=== PATIENT | female | born 1990 | race Caucasian/White ===

== ENCOUNTER 2019-11-22 16:19 | Emergency (ER) | payer MEDICARE, MEDICAID, SELFPAY ==
--- NOTE | 2019-11-22 16:26 | ED.EYEPROB ---
HPI - Eye Problem General Chief complaint: Eye Problems Stated complaint: [place] eye Time Seen by Provider: 11/22/19 16:32 Source: patient and RN notes reviewed Mode of arrival: ambulatory Limitations: no limitations History of Present Illness HPI Narrative: 29-year-old female presents with concern for eye irritation, eye redness. Reports symptoms started today. Reports last night before she went to bed she had mild eye irritation. Denies new vision changes. chief complaint: eye redness Related Data Home Medications Medication Instructions Recorded Confirmed mirtazapine 30 mg PO HS 11/22/19 11/22/19 topiramate 50 mg PO DAILY 11/22/19 11/22/19 Allergies Allergy/AdvReac Type Severity Reaction Status Date / Time No Known Allergies Allergy Verified 11/22/19 16:41 Review of Systems Review of Systems: Narrative: CONSTITUTIONAL: Denies malaise, chills, sweats, or fever. EYES: Denies visual changes. Reports left eye redness,, irritation, discharge. ENT: Denies rhinorrhea, congestion, sinus pain, otalgia or sore throat. SKIN: Denies rash or itching. MUSCULOSKELETAL: Denies myalgia. NEUROLOGIC: Denies headache. All systems reviewed & are unremarkable except as noted in HPI and below PMFSH Comments At time of signature, agree with nursing past medical, surgical, social and family history. There is no relevant family history pertinent to the presenting complaint Exam Narrative: Exam Narrative: GENERAL: Well-appearing, well-nourished, and in no acute distress. HEAD: Normocephalic, atraumatic. EYES: PERRLA and EOMI. left eye conjunctive and sclera injected, cloudy drainage noted. Right eye conjunctive a sclera clear ENT: Nares clear, turbinates pink, no rhinorrhea or epistaxis. Mucous membranes moist. TM pearly chavez with sharp light reflex bilaterally; no tragal tenderness. Oropharynx without erythema or lesions. Tonsils not enlarged and without exudate. NECK: Supple. CHEST: No respiratory distress. Speaks in full sentences. HEART: Regular rate and rhythm. SKIN: Warm, dry, no rash. NEURO: Alert and oriented x3. PSYCH: Normal mood and affect Course Course Emergency Course: Patient is aware of diagnosis, understands and agrees to treatment plan. Anticipatory guidance given. Patient agrees to follow-up as directed and is aware of reasons to seek care at the emergency department. Portions of this record may have been created with voice recognition software Vital Signs Vital signs: Vital Signs Temperature 98.2 F 11/22/19 16:30 Pulse Rate 95 11/22/19 16:30 Respiratory Rate 20 11/22/19 16:30 Blood Pressure 128/73 11/22/19 16:30 Pulse Oximetry 98 11/22/19 16:30 Temperature 98.2 F 11/22/19 16:30 Pulse Rate 95 11/22/19 16:30 Respiratory Rate 20 11/22/19 16:30 Blood Pressure 128/73 11/22/19 16:30 Pulse Oximetry 98 11/22/19 16:30 Reviewed. MDM - Eye Problem MDM Narrative Medical decision making narrative: Consideration of the following conditions may be warranted for the presenting problem, they are not final diagnoses: Bacterial conjunctivitis, allergic conjunctivitis, viral conjunctivitis, foreign body, blepharitis, chalazion, hordeolum, corneal abrasion. Exam findings show no acute concerns or changes; patient is non-toxic appearing and is in no distress. Patient is appropriate for outpatient treatment and follow-up. Critical Care Time Critical Care Time Critical Care Time: No Discharge Plan Discharge Clinical Impression: Bacterial conjunctivitis Patient Disposition: Home, Self-Care Condition: Stable Instructions: Conjunctivitis (ED) Additional Instructions: Do not touch or rub your eye. Use a warm or cool washcloth on your eye for comfort Use eyedrops as directed Practice good handwashing and hygiene to prevent spread of infection You may take Tylenol or ibuprofen for pain Follow-up with PCP or jewelry sorter if condition is not improving in 2-3days. G
[2019-11-22 16:30] VITALS: BP 128/73; PULSE 95; RESP 20; TEMP 36.8; O2SAT 98
== END 2019-11-22 16:45 | disposition home or self-care (01) ==
PROVIDERS: Emergency Provider Nurse Practitioner
DX: H10.9 Unspecified conjunctivitis (principal); G25.81 Restless legs syndrome; F41.9 Anxiety disorder, unspecified; F31.9 Bipolar disorder, unspecified
CPT/HCPCS: 99213; G0463

== ENCOUNTER 2021-04-23 15:12 | Emergency (ER) | payer OTHER, SELFPAY ==
[2021-04-23 15:17] VITALS: BP 123/83; PULSE 118; RESP 20; TEMP 36.2; O2SAT 99
--- NOTE | 2021-04-23 15:20 | ED.SKABFB ---
HPI - Skin/Abscess/Foreign Bdy General Chief complaint: Skin/Abscess/Foreign Body Stated complaint: poss shingles Time Seen by Provider: 04/23/21 15:20 Source: patient, RN notes reviewed and old records reviewed Mode of arrival: ambulatory Limitations: no limitations History of Present Illness HPI narrative: 30-year-old female presents to the [facility] with a painful rash to left side of abdomen, back and 3 hepatic lesions noted. Worsening over the last 24 hours No treatment prior to arrival. MD complaint: rash Related Data Home Medications Medication Instructions Recorded Confirmed escitalopram oxalate 20 mg PO DAILY 11/22/19 11/22/19 gabapentin 800 mg PO HS 11/22/19 11/22/19 hydroxyzine HCl 100 mg PO QID PRN 11/22/19 11/22/19 lamotrigine 100 mg PO DAILY 11/22/19 11/22/19 mirtazapine 30 mg PO HS 11/22/19 11/22/19 topiramate 50 mg PO DAILY 11/22/19 11/22/19 Allergies Allergy/AdvReac Type Severity Reaction Status Date / Time No Known Allergies Allergy Verified 11/22/19 16:41 Review of Systems Review of Systems: All systems reviewed & are unremarkable except as noted in HPI and below Constitutional: Constitutional: Reports no additional constitutional complaints, Denies chills and Denies fever(s) Eyes: Eyes: Reports no additional eye complaints ENT: Reports system reviewed and no additional complaints, except as documented Cardiovascular: Cardiovascular: Reports no additional cardiovascular complaints Respiratory: Respiratory: Reports no additional respiratory complaints Gastrointestinal: Gastrointestinal: Reports no additional gastrointestinal complaints Musculoskeletal: Musculoskeletal: Reports no additional musculoskeletal complaints Integumentary/Breasts: Skin/Breast: Reports as per HPI and Reports rash Neurologic: Reports system reviewed and no additional complaints, except as documented Psychiatric: Psychiatric: Reports no additional psychiatric complaints Allergic/Immunologic: Allergic/Immunologic: Reports no additional allergic/immunologic complaints [facility] Past Medical History Medical History (Updated 04/23/21 @ 16:46 by Cielo Hernandez) Anxiety and depression Surgical History Surgical History (Updated 04/23/21 @ 16:46 by Cielo Hernandez) No significant past surgical history Social History Social History (Updated 04/23/21 @ 16:46 by Cielo Hernandez) Living arrangements: with family Gender identity (if verbalized by the patient): Female Comments At the time of my signature, I reviewed and agree with the nursing past medical, surgical, social, and family history. There is no relevant family history pertinent to the patient complaint. Exam Const: General: healthy appearing, no acute distress and alert Nutritional Appearance: well nourished and obese morbidly obese Orientation/consciousness: patient oriented x3 : General: Yes no CVA tenderness Skin: Rashes: rashes noted vesicles left Full body images: 1. Hepatic lesion, no signs of infection, small blistery areas. 2. Hepatic lesion 3. Hepatic lesion Neuro: General: patient oriented x3, moves all extremities and no meningeal signs Cranial nerves: Yes Nystagmus not present Speech: normal speech Gait exam (Neuro): Normal gait present Extrem: General: normal to inspection and no pedal edema Psych: Appearance: grossly normal and well kempt Mental Status: mental status grossly normal Affect: normal affect Attitude: cooperative Thought content: Yes Normal thought content present Course Course Emergency Course: Discharge instructions reviewed with patient, as well as provided in writing per nursing staff. The instructions also include specific and strict return/GO TO THE ER as well as f/u information. All questions have been answered, and the patient deny any further questions with discharge and discharge plan. Vital Signs Vital signs: Vital Signs Temperature 97.2 F L 04/23/21 15:17 Pulse Rate 118 H 12
== END 2021-04-23 16:05 | disposition home or self-care (01) ==
PROVIDERS: Emergency Provider Nurse Practitioner
DX: B02.9 Zoster without complications (principal); F41.9 Anxiety disorder, unspecified; F32.A Depression, unspecified
CPT/HCPCS: 99213; G0463

== ENCOUNTER 2023-01-09 14:03 | Emergency (ER) | payer MEDICARE, MEDICAID, SELFPAY ==
[2023-01-09 14:20] VITALS: BP 135/79; PULSE 129; RESP 20; TEMP 36.2; O2SAT 100
--- NOTE | 2023-01-09 14:41 | ED.URI ---
HPI - URI/Sore Throat General Chief Complaint: Upper Respiratory Infection Stated Complaint: Cough Time Seen by Provider: 01/09/23 14:42 Source: patient Mode of arrival: ambulatory Limitations: no limitations History of Present Illness HPI Narrative: 32-year-old female who presents to [facility] with complaints of 3-4 days of sore throat and congested cough,stuffy nose.Patient reports that she has not had a fever.She reports that she has has had vaccinations for COVID but no booster, is concerned for possible COVID and would like to be tested. Patient denies any shortness of breath with SAO2 100% on room air. Tylenol taken for discomfort. MD elicited complaint: cough and sore throat Onset (ago): day(s) (3-4) Able to tolerate fluids by mouth: Yes Treatments prior to arrival: acetaminophen Related Data Home Medications Medication Instructions Recorded Confirmed escitalopram oxalate 20 mg tablet 20 mg PO DAILY 11/22/19 01/09/23 gabapentin 800 mg tablet 800 mg PO HS 11/22/19 01/09/23 hydroxyzine HCl 50 mg tablet 100 mg PO QID PRN Anxiety 11/22/19 01/09/23 lamotrigine 100 mg tablet 100 mg PO DAILY 11/22/19 01/09/23 mirtazapine 30 mg tablet 30 mg PO HS 11/22/19 01/09/23 topiramate 50 mg tablet 50 mg PO DAILY 11/22/19 01/09/23 olanzapine 5 mg tablet 5 mg PO DAILY 01/09/23 01/09/23 Allergies Allergy/AdvReac Type Severity Reaction Status Date / Time No Known Allergies Allergy Verified 01/09/23 14:07 Review of Systems Review of Systems: CONSTITUTIONAL: Denies malaise, chills, sweats, or fever. EYES: Denies visual changes, redness, or discharge. ENT: Reports rhinorrhea, congestion, sinus pain, no otalgia and sore throat. CARDIOVASCULAR: Denies chest pain, palpitations, or edema. RESPIRATORY: Reports cough.? Denies dyspnea. GASTROINTESTINAL: Denies abdominal pain, nausea, vomiting, diarrhea SKIN: Denies rash or itching. MUSCULOSKELETAL: Denies myalgia. NEUROLOGIC: Denies headache. All systems reviewed & are unremarkable except as noted in HPI and below PMFSH Past Medical History Medical History (Updated 01/11/23 @ 20:16 by Iraida Kapoor NP) Anxiety and depression Migraine Restless leg syndrome Surgical History Surgical History (Updated 04/23/21 @ 16:46 by Cielo Hernandez APRN) No significant past surgical history Social History Social History (Updated 04/23/21 @ 16:46 by Cielo Hernandez APRN) Living arrangements: with family Gender identity (if verbalized by the patient): Female Comments At time of signature, agree with nursing past medical, surgical, social and family history. There is no relevant family history pertinent to the presenting complaint Exam Narrative: GENERAL: Well-appearing, well-nourished, and in no acute distress. HEAD: Normocephalic EYES: PERRLA, conjunctivae clear ENT: Nares clear, turbinates edematous and erythematous, clear discharge. Mucous membranes moist. TM pearly chavez with dull light reflex bilaterally; no tragal tenderness. Oropharynx erythematous without lesions. Tonsils not enlarged and without exudate, no drooling, no hoarseness, no trismus, uvula midline.post nasal drainage. NECK: Supple. No lymphadenopathy CHEST: Clear to auscultation, breath sounds equal. No wheezing, rhonchi, rales, or stridor. No respiratory distress, speaks in full sentences.SAO2 100% on room air HEART: Regular rate and rhythm. No murmur heard. SKIN: Warm, dry, no rash. NEURO: Alert and oriented x3. PSYCH: Normal mood and affect Course Course Emergency Course: Patient is aware of diagnosis, understands and agrees to treatment plan.? Anticipatory guidance given.? Patient agrees to follow-up as directed and is aware of reasons to seek care at the emergency department. Portions of this record may have been created with voice recognition software Level of Care: Express Care Visit Vital Signs Vital signs: Vital Signs Temperature 36.2 C L 09/
== END 2023-01-09 15:00 | disposition home or self-care (01) ==
PROVIDERS: Emergency Provider Registered Nurse
DX: U07.1 COVID-19 (principal); F41.9 Anxiety disorder, unspecified; G25.81 Restless legs syndrome
CPT/HCPCS: 87426; 99213; C9803; G0463

== ENCOUNTER 2023-01-28 19:59 | Inpatient (IN) | payer MEDICARE, MEDICAID, SELFPAY ==
--- NOTE | ~2023-01-28 | XR_ITS ---
XR chest 1V DATE: 01/28/2023 20:34 INDICATION: Ingestion TECHNIQUE: Supine AP chest COMPARISON: None FINDINGS: The cardiac and mediastinal sweats appear unremarkable for AP projection. No pulmonary cons olidation, pleural effusion or pneumothorax is evident. Included skeletal structures are unremarkable. IMPRESSION: No active disease is evident Reviewed, dictated and finalized at location A.
--- NOTE | ~2023-01-28 | CT_ITS ---
EXAMINATION: CT brain wo con DATE: 01/28/2023 20:30 INDICATION: Altered mental state. Overdose. TECHNIQUE: Computed tomography (CT) of the head was performed without intravenous contrast. The mA wa s adjusted according to patient size. Iterative reconstruction technique was employed. Exam dose: 12 10.67 mGy-cm total exam DLP. COMPARISON: None FINDINGS: No intracranial mass lesion or hemorrhage or cerebrovascular accident, midline shift or mas s effect effect is detected. Normal ventricular size. No subdural or epidural hematoma. No fracture or bone destruction of the cranial vault. There is mucoperiosteal thickening at the frontoethmoid areas and patchy soft tissue opacification of ethmoid air cells bilaterally. Minimal mucoperiosteal thickening of the lower maxillary sinuses. The mastoid air cells are normally developed and aerated. IMPRESSION: No acute intracranial finding Reviewed, dictated and finalized at Location [facility]. Reviewed, dictated and finalized at location A.
[2023-01-28 20:00] VITALS: BP 91/59; PULSE 83; RESP 15; TEMP 36.7; O2SAT 100
--- NOTE | 2023-01-28 20:07 | ECG_ITS ---
Measurements Intervals [place] Rate: 77 P: 12 DC: 162 QRS: 5 QRSD: 98 T: 35 QT: 385 QTc: 438 Interpretive Statements SINUS RHYTHM LOW QRS VOLTAGE IN PRECORDIAL LEADS BASELINE WANDER- I, III, AVL BORDERLINE ECG NO PREVIOUS ECG AVAILABLE FOR COMPARISON Electronically Signed On 01-28-2023 20:26:20 CDT by Nathaniel Kaminski D.O.
--- NOTE | 2023-01-28 20:10 | ED.OVERDOSE ---
HPI - Overdose General Chief Complaint: Overdose Stated Complaint: od Time Seen by Provider: 01/28/23 20:04 History of Present Illness HPI Narrative: Patient is a 32-year-old female with unknown medical history here after intentional overdose on unknown medications. History is obtained by EMS. EMS notes that patient was riding [employer] was someone all day today. They did stop at a pharmacy earlier on today and picked up prescription medications. They note that she took several handfuls of medications, unknown which these medications were and she became more lethargic and was brought in by ambulance. Patient does note she took amitriptyline, unknown how many. She declines attempt to kill herself. Very poor historian. complaint: intentional overdose Intent: unwilling to say Related Data Home Medications Medication Instructions Recorded Confirmed escitalopram oxalate 20 mg tablet 20 mg PO DAILY 11/22/19 01/09/23 gabapentin 800 mg tablet 800 mg PO HS 11/22/19 01/09/23 hydroxyzine HCl 50 mg tablet 100 mg PO QID PRN Anxiety 11/22/19 01/09/23 lamotrigine 100 mg tablet 100 mg PO DAILY 11/22/19 01/09/23 mirtazapine 30 mg tablet 30 mg PO HS 11/22/19 01/09/23 topiramate 50 mg tablet 50 mg PO DAILY 11/22/19 01/09/23 olanzapine 5 mg tablet 5 mg PO DAILY 01/09/23 01/09/23 Allergies Allergy/AdvReac Type Severity Reaction Status Date / Time No Known Allergies Allergy Verified 01/28/23 20:43 Review of Systems Review of Systems: ROS unobtainable: Yes unobtainable due to mental status PMFSH Past Medical History Medical History (Updated 01/28/23 @ 22:19 by Nichole Herrera MD) Anxiety and depression Migraine Restless leg syndrome Surgical History Surgical History (Updated 04/23/21 @ 16:46 by Cielo Hernandez APRN) No significant past surgical history Social History Social History (Updated 04/23/21 @ 16:46 by Cielo Hernandez APRN) Living arrangements: with family Gender identity (if verbalized by the patient): Female Exam Narrative: GENERAL: Ill appearing HEAD: Normocephalic, atraumatic. EYES: PERRLA and EOMI. Pupils 3mm. ENT: Nares clear. Mucous membranes moist. NECK: Supple. CHEST: Clear to auscultation. No respiratory distress. HEART: Regular rate and rhythm. Normal peripheral pulses. ABDOMEN: Soft, nontender, nondistended. EXTREMITIES: Normal range of motion. No edema. SKIN: Warm, dry, no rash. NEURO: No focal deficits. Oriented x1. Drowsy but will wake and answer some questions. PSYCH: angry affect Course Course Emergency Course: Patient seen evaluated on EMS arrival. Patient reportedly took several handfuls of medications prior to arrival. Unknown what medications she took other than amitriptyline. On chart review patient has prior prescriptions for acyclovir, escitalopram, gabapentin, hydroxyzine, lamotrigine, mirtazapine, olanzapine. Only prior visits in our system are ED visits for conjunctivitis, shingles and COVID. Lab work reviewed. CBC within normal limits. Magnesium 1.3, will replete. Salicylates and acetaminophen negative. ETOH negative. Patient not redirectable. Will give 2mg of ativan. Spoke with Dr. Hardy, accepts to ICU. Consult placed. He requested Bicarg gtt and additional IVF. Both have been ordered. Spoke with Dr. Mancini, accepts patient for admission. Vital Signs Vital signs: Vital Signs Temperature 98.1 F 01/28/23 20:00 Pulse Rate 83 01/28/23 20:00 Respiratory Rate 15 01/28/23 20:00 Blood Pressure 91/59 L 01/28/23 20:00 Pulse Oximetry 100 01/28/23 20:00 Oxygen Delivery Room Air 01/28/23 20:00 Temperature 98.1 F 01/28/23 20:00 Pulse Rate 82 01/28/23 20:42 Respiratory Rate 20 01/28/23 20:57 Blood Pressure 109/64 01/28/23 20:42 Pulse Oximetry 99 01/28/23 20:42 Oxygen Delivery Room Air 01/28/23 20:00 MDM - Overdose Lab Data 01/28/23 20:15 01/28/23 20:15 Labs: Lab Results
[2023-01-28 20:21] VITALS: PULSE 81
[2023-01-28 20:26] LABS: Basophils Absolute Auto 0.1 K/mm3 (0.0-0.1); Basophils Percent Auto 0.6 % (0.2-1.2); Eosinophils Absolute Auto 0.3 K/mm3 (0-0.3); Eosinophils Percent Auto 3.2 % (0-4.4); Hematocrit 38.3 % (37.0-47.0); Hemoglobin 12.1 g/dL (12.0-15.0); Immature Granulocyte Absolute 0.04 K/mm3 (0.00-0.031); Immature Granulocyte Percent A 0.4 % (0-0.5); Lymphocytes Absolute Auto 3.24 K/mm3 (0.9-3.2); Lymphocytes Percent Auto 33.1 % (18.3-44.2); Mean Corpuscular HGB Conc 31.6 g/dl (32-36); Mean Corpuscular Hemoglobin 27.8 pg (26-34); Mean Platelet Volume 10.1 fl (7.4-10.4); Monocytes Absolute Auto 0.6 K/mm3 (0.1-0.6); Monocytes Percent Auto 5.7 % (2.6-8.5); Neutrophils Absolute Auto 5.6 K/mm3 (1.3-6.7); Platelet Count Result 289 k/mm3 (150-375); Red Blood Count 4.35 M/mm3 (4.2-5.4); Red Cell Distribution Width 13.2 % (11.5-14.5); White Blood Count 9.8 K/mm3 (4.5-10.0)
[2023-01-28 20:36] LABS: Acetaminophen < 10 ug/mL (10-30); Alanine Aminotransferase 28 U/L (6-35); Albumin Level 2.6 g/dL (3.5-5.1); Alkaline Phosphatase 45 U/L (38-126); Anion Gap 4 mmol/L (8-16); Aspartate Amino Transferase 18 U/L (14-36); Bilirubin,Total 0.3 mg/dL (0.2-1.3); Blood Urea Nitrogen 7 mg/dL (7-17); Calcium 6.6 mg/dL (8.4-10.2); Carbon Dioxide 22 mmol/L (22-30); Chloride 111 mmol/L (98-107); Estimated CRCL calculation 122 ml/min; Estimated Glomerular Filt Rate > 60; Ethanol < 10 mg/dL (<10); Glucose 105 mg/dL (65-110); Magnesium 1.3 mg/dL (1.6-2.3); Partial Thromboplastin Time 24.9 SECONDS (22.3-36.8); Potassium 3.6 mmol/L (3.4-5.0); Salicylate < 1.0 mg/dL (2-20); Sodium 137 mmol/L (137-145)
[2023-01-28 20:40] LABS: Lactic Acid Reflex 1.7 mmol/L (0.7-2.0)
[2023-01-28 20:42] VITALS: BP 109/64; PULSE 82; RESP 20; O2SAT 99
[2023-01-28] MEDS: SODIUM CHLORIDE 0.9% IV 1,000 ML 999 ML IV CONT (20:42)
[2023-01-28 20:57] VITALS: RESP 20
[2023-01-28 21:06] LABS: Thyroid Stimulating Hormone 0.996 uIU/mL (0.465-4.680)
[2023-01-28 21:33] LABS: Appearance Urine Clear (Clear); Bilirubin Urine Negative (Negative); Blood Urine Trace (Negative); Color Urine Yellow (Yellow); Glucose Urine UA Negative (Negative); Ketones Urine Negative (Negative); Leukocyte Esterase Ur 3+ LEU/UL (Negative); Nitrate Urine Positive (Negative); Protein Urine Negative (Negative); Urobilinogen Urine 0.2 mg/dL (<2.0)
[2023-01-28 21:35] LABS: Barbiturate Screen Urine Negative (Negative); Benzodiazepines Screen Urine Negative (Negative)
[2023-01-28 21:36] LABS: Bacteria Urine 1+ /hpf; Need Manual Microscopic Reviewed; RBC Urine 0-2 /hpf (0-2); Squamous Epithelial Cell Urine None seen /hpf (Few); WBC Urine 51-100 /hpf
[2023-01-28 21:37] LABS: Add Urine Microscopic? YES; Cannabinoid Screen Urine Negative (Negative); Cocaine Screen Urine Negative (Negative); Methadone Screen Urine Negative (Negative); Opiate Screen Urine Negative (Negative); Phencyclidine Screen Urine Negative (Negative)
[2023-01-28 22:28] VITALS: BP 92/78; PULSE 85; RESP 20; O2SAT 100
[2023-01-28 22:33] LABS: Amphetamine Screen Urine Negative (Negative)
--- NOTE | 2023-01-28 22:46 | PM.IMHP ---
H&P: HPI History of Present Illness Date/Time: 01/28/23 22:46 Chief Complaint: Patient brought to the ER for evaluation by EMS after intentional polydrug overdose Narrative: Our patient is a very unfortunate 32 years old obese young white female who was brought to the ER for evaluation by EMS after accidental poly-drug overdose. 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 They stopped at a pharmacy earlier and picked up prescription medications. She took several handfuls of medications, became lethargic and was brought in to the ED for evaluation by EMS. Patient does note she took amitriptyline yet unable to tell how many and which is medications. She is a very poor historian and very agitated when questioned about today's events. She denies any suicidal ideation or attempt. [employer] was consulted by the ED physician who accepted the patient to be admitted to ICU for aggressive IV hydration and critical care monitoring. Review of Systems Review of Systems: unable to be obtained. Patient is agitated, confused and noncooperative ROS unobtainable: Yes unobtainable due to medical condition and unobtainable due to mental status PMFSH Past Medical History Medical History Anxiety and depression Migraine Restless leg syndrome Surgical History Surgical History No significant past surgical history Social History Social History Living arrangements: with family Gender identity (if verbalized by the patient): Female Meds Home Medications and Allergies Home Medications Medication Instructions Recorded Confirmed Type escitalopram oxalate 20 mg tablet 20 mg PO DAILY 11/22/19 01/09/23 History gabapentin 800 mg tablet 800 mg PO HS 11/22/19 01/09/23 History hydroxyzine HCl 50 mg tablet 100 mg PO QID PRN Anxiety 11/22/19 01/09/23 History lamotrigine 100 mg tablet 100 mg PO DAILY 11/22/19 01/09/23 History mirtazapine 30 mg tablet 30 mg PO HS 11/22/19 01/09/23 History polymyxin B sulfate 10,000 1 drp ophthalmic (eye) Q4H 7 days 11/22/19 01/09/23 Rx unit-trimethoprim 1 mg/mL eye #10 mL drops (Polytrim) topiramate 50 mg tablet 50 mg PO DAILY 11/22/19 01/09/23 History acyclovir 800 mg tablet 800 mg PO Q4H 10 days #60 tabs 04/23/21 01/09/23 Rx gabapentin 100 mg capsule 100 mg PO BID #20 caps 04/23/21 01/09/23 Rx nirmatrelvir 300 mg (150 mg See Rx Instructions PO .COMPLEX 01/09/23 Rx x2)-ritonavir 100 mg tablet,dose #30 ea pack (Paxlovid) olanzapine 5 mg tablet 5 mg PO DAILY 01/09/23 01/09/23 History Allergies Allergy/AdvReac Type Severity Reaction Status Date / Time No Known Allergies Allergy Verified 01/28/23 20:43 Vital Signs Vital Signs - 24 hr 01/28/23 20:00 01/28/23 20:42 01/28/23 20:21 Temperature 36.7 C Pulse Rate 83 82 81 Respiratory Rate 15 20 Blood Pressure 91/59 L 109/64 Pulse Oximetry 100 99 Oxygen Delivery Room Air 01/28/23 20:57 01/28/23 22:28 Temperature Pulse Rate 85 Respiratory Rate 20 20 Blood Pressure 92/78 L Pulse Oximetry 100 Oxygen Delivery Exam Narrative: PHYSICAL EXAMINATION: Vital signs: Please see the chart General physical exam: patient is agitated, confused and uncooperative Head/eyes: Atraumatic, EOMI, PERRLA ENT: Moist mucous membranes, nasal passages clear Neck: Supple, full range of motion, trachea midline CVS: S1 + S2, regular rate and rhythm, no murmurs Respiratory: Bilaterally fair air entry in both lung horton, mild B/L crackles, symmetric chest expansion, no distress Abdomen: Soft, non-tender, bowel sounds +ve, no organomegaly Extremities: No clubbing, no cyanosis, no edema, no calf tenderness Musculoskeletal: Moves all, adequate range of motion, no muscle spasms Skin: Warm, dry, no jaundice, no cyanosis Neurological: Unable
[2023-01-28] MEDS: LORazepam INJ (*CRX) 2 MG/ML VIAL IV PUSH (22:47)
--- NOTE | 2023-01-28 22:49 | PC.NURSE ---
Pt noncooperative. Pt has pulled out both IVs placed. New IV placed at this time. First liter of NS was dumped on to ground by pt after pulling iv out.
[2023-01-28 22:56] LABS: Pregnancy On Board Control Positive; Urine Pregnancy Test Negative
[2023-01-28 22:58] LABS: Fractional Inspired Oxygen 21 %; HCO3 VBG 27.3 mEq/l (24.0-30.0); PCO2 VBG 51.8 mmHg (42.0-48.0); PO2 VBG 34.7 mmHg (35.0-45.0); pH VBG 7.339 (7.300-7.400)
[2023-01-28] MEDS: SODIUM BICARBONATE 8.4% 100 MEQ in DEXTROSE 5% 1,000 ML 1,000 ML 50 MEQ IV CONT (22:59)
[2023-01-28] MEDS: LACTATED RINGERS 1,000 ML 999 ML IV CONT (22:59)
[2023-01-28 23:03] LABS: Device ROOM AIR
--- NOTE | 2023-01-28 23:30 | PC.NURSE ---
This patient, Lauren Hernandez, was admitted to Intensive Care Unit-2. Patient/family oriented to hospital policies and general routines including ID bracelet, bed and alarms, visiting hours, pain management, procedures, bathroom and other care routines, personal items, smoking policy, room service/diet, and visiting hours. Information on how to activate the Rapid Response Team has been discussed. Patient/Family are encouraged to report perceived risks to care and to ask questions if they do not understand what they are told or what they should do.
[2023-01-28 23:43] VITALS: BP 94/74; PULSE 85; RESP 20; TEMP 36.7; O2SAT 100
[2023-01-29] VITALS (8 sets, daily range): BP systolic 100–122; BP diastolic 59–88; PULSE 70–97; RESP 15–22; TEMP 36.3–36.9; O2SAT 95–100; BMI 38.4
[2023-01-29] MEDS: MAGNESIUM SULF 2 GM/WATER 50ML 2 GM/50 ML BAG IVPB (00:20)
[2023-01-29] MEDS: KCL 20 MEQ/SW 100 ML 100 ML 50 MEQ IVPB (02:27)
[2023-01-29 06:56] LABS: Basophils Absolute Auto 0.1 K/mm3 (0.0-0.1); Basophils Percent Auto 0.7 % (0.2-1.2); Eosinophils Absolute Auto 0.2 K/mm3 (0-0.3); Eosinophils Percent Auto 2.6 % (0-4.4); Hematocrit 38.3 % (37.0-47.0); Hemoglobin 12.4 g/dL (12.0-15.0); Immature Granulocyte Absolute 0.03 K/mm3 (0.00-0.031); Immature Granulocyte Percent A 0.4 % (0-0.5); Lymphocytes Absolute Auto 3.25 K/mm3 (0.9-3.2); Lymphocytes Percent Auto 42.3 % (18.3-44.2); Mean Corpuscular HGB Conc 32.4 g/dl (32-36); Mean Corpuscular Hemoglobin 28.4 pg (26-34); Mean Corpuscular Volume 87.8 fl (80-100); Mean Platelet Volume 9.9 fl (7.4-10.4); Monocytes Absolute Auto 0.4 K/mm3 (0.1-0.6); Monocytes Percent Auto 5.1 % (2.6-8.5); Neutrophils Absolute Auto 3.8 K/mm3 (1.3-6.7); Neutrophils Percent Auto 48.9 % (45.5-73.1); Platelet Count Result 250 k/mm3 (150-375); Red Blood Count 4.36 M/mm3 (4.2-5.4); Red Cell Distribution Width 13.2 % (11.5-14.5); White Blood Count 7.7 K/mm3 (4.5-10.0)
--- NOTE | 2023-01-29 07:00 | ECG_ITS ---
Measurements Intervals [place] Rate: 70 P: 41 AR: 170 QRS: 7 QRSD: 98 T: 52 QT: 418 QTc: 452 Interpretive Statements SINUS RHYTHM BASELINE ARTIFACT- AVR, AVL, AVF NORMAL ECG COMPARED TO ECG 01/28/2023 20:16:06 NO SIGNIFICANT CHANGES Electronically Signed On 01-29-2023 7:39:17 CDT by Nathaniel Kaminski D.O.
[2023-01-29 07:06] LABS: Alanine Aminotransferase 31 U/L (6-35); Albumin Level 3.2 g/dL (3.5-5.1); Alkaline Phosphatase 51 U/L (38-126); Anion Gap 3 mmol/L (8-16); Aspartate Amino Transferase 23 U/L (14-36); Bilirubin,Total 0.4 mg/dL (0.2-1.3); Blood Urea Nitrogen 8 mg/dL (7-17); Calcium 8.2 mg/dL (8.4-10.2); Carbon Dioxide 28 mmol/L (22-30); Chloride 106 mmol/L (98-107); Estimated CRCL calculation 124 ml/min; Estimated Glomerular Filt Rate > 60; Glucose 101 mg/dL (65-110); Magnesium 2.3 mg/dL (1.6-2.3); Phosphorus 3.9 mg/dL (2.5-4.5); Potassium 4.1 mmol/L (3.4-5.0); Sodium 137 mmol/L (137-145)
[2023-01-29] MEDS: SODIUM CHLORIDE 0.9% IV 1,000 ML 999 ML IV CONT (07:30)
[2023-01-29] MEDS: cefTRIAXone 2 GM/NS 100 ML 2 GM/100 ML BAG IVPB (08:07)
[2023-01-29] MEDS: SODIUM CHLORIDE 0.9% IV 1,000 ML 100 ML IV CONT ×2 (08:08→18:35)
--- NOTE | 2023-01-29 08:14 | WPDCNINT ---
Assessment and Plan Assessment and plan (1) Intentional drug overdose: Code(s): T50.902A - Poisoning by unspecified drugs, medicaments and biological substances, intentional self-harm, initial encounter Status: Acute Assessment and Plan: 01/28: Patient presented the ED via EMS after ingesting a handful of prescription medications. Patient stated she took amitriptyline. -patient was given 2 L IV fluids in the ER -started on bicarb infusion -EKG with normal sinus rhythm, normal QTC and NJ interval this morning -will discontinue bicarb infusion -will give additional IV fluid bolus, and continue maintenance IV fluids -patient is medically stable for care coordination crisis management to evaluate -patient currently denies any suicidal or homicidal ideation or behavior (2) TCA (tricyclic antidepressant) overdose of undetermined intent: Code(s): T43.014A - Poisoning by tricyclic antidepressants, undetermined, initial encounter Status: Acute Assessment and Plan: As above (3) Hypomagnesemia: Code(s): E83.42 - Hypomagnesemia Status: Acute Assessment and Plan: Magnesium was replaced in the ER -magnesium levels have normalized, will continue to monitor (4) UTI (urinary tract infection): Code(s): N39.0 - Urinary tract infection, site not specified Status: Acute Assessment and Plan: Patient complained of dysuria, UA was reflective of urinary tract infection -urine cultures have been obtained pending -started patient on ceftriaxone Plan DVT prophylaxis: Lovenox Stress ulcer prophylaxis: Not indicated Nutrition: Regular diet Code Status: Full code Critical Care Time Spent: 44 minutes Due to a high probability of clinically significant, life threatening deterioration, the patient required my highest level of preparedness to intervene emergently and I personally spent this critical care time directly and personally managing the patient. This critical care time included obtaining a history; examining the patient; pulse oximetry; ordering and review of studies; arranging urgent treatment with development of a management plan; evaluation of patient's response to treatment; frequent reassessment; and discussions with other providers. It was exclusive of separately billable procedures and treating other patients and teaching time. Please see Assessment and Plan section and the rest of the note for further information on patient assessment and treatment This dictation may have been done utilizing a voice recognition system. Attempts have been made to correct errors. However, there may be uncorrected grammatical, spelling, and recognitions errors present. Planning Advisor Consult Note Consult date: 01/29/23 Reason for consult: Intentional drug overdose HPI: Lauren Hernandez is a 32 year old female with past medical history of anxiety, depression, migraine, restless leg syndrome, presented the ED via EMS with intentional poly drug overdose. History was obtained from the chart and the patient. According to the records the EMS stated the patient was riding with somebody working as a door-all day on the day of admission, this stopped at a pharmacy and picked up some prescription medication and she took several handfuls of medications, became lethargic and was brought to the ER via EMS. In the ER she was agitated when asked about the event. Pt was started on Bicarb infusion and transferred to ICU for further management. Pt seen and examined i the ICU, Is awake, alert, oriented. Patient states she only took 3 pills of amitriptyline. States she took it to feel good, denies any suicidal or homicidal ideation or behavior. Patient lives with a friend, is not , does not have any children. She does not work at this moment. Denies any alcohol or illicit drug use. Smokes 2 cigarettes per day. Patient is hemodynamically stable, urine output has been adequate, afebrile. UA was pos
--- NOTE | 2023-01-29 13:39 | PM.IMPN ---
Progress Note: A&P Assessment and Plan (1) Intentional drug overdose: Code(s): T50.902A - Poisoning by unspecified drugs, medicaments and biological substances, intentional self-harm, initial encounter Status: Acute (2) TCA (tricyclic antidepressant) overdose of undetermined intent: Code(s): T43.014A - Poisoning by tricyclic antidepressants, undetermined, initial encounter Status: Acute (3) Hypomagnesemia: Code(s): E83.42 - Hypomagnesemia Status: Acute (4) UTI (urinary tract infection): Code(s): N39.0 - Urinary tract infection, site not specified Status: Acute Plan Patient irritable. Reports that she took 3 doses of amitriptyline to get high. ER note states she took handful of several medications unknown which medications and became lethargic and was brought in by ambulance. Denies attempt to kill herself. She has been placed on 05/09 due to overdose on medication. Her prescription medication for acyclovir escitalopram gabapentin hydroxyzine lamotrigine mirtazapine and olanzapine. She used to be on amitriptyline and she had order prescription medication for this. Lab work with normal cbc low magnesium 1.3 which was repleted salicylate and acetaminophen was negative eval alcohol was negative. He was slough started on bicarbonate drip and was placed in ICU. Patient continues to be irritable and agitated and uncooperative on history and physical. A QTC has been stable and bicarb drip has been turned off. She has history of underlying bipolar disorder migraines and restless leg syndrome. Crisis team would be contacted for further evaluation. Also has UA positive for UTI and started on ceftriaxone. Follow urine culture. Hypo magnesiumia replaced Subjective Date/time seen: 01/29/23 13:39 Interval history: Patient irritable. Reports that she took 3 doses of amitriptyline to get high. ER note states she took handful of several medications unknown which medications and became lethargic and was brought in by ambulance. Denies attempt to kill herself. She has been placed on 05/09 due to overdose on medication. Her prescription medication for acyclovir escitalopram gabapentin hydroxyzine lamotrigine mirtazapine and olanzapine. She used to be on amitriptyline and she had order prescription medication for this. Lab work with normal cbc low magnesium 1.3 which was repleted salicylate and acetaminophen was negative eval alcohol was negative. He was slough started on bicarbonate drip and was placed in ICU. Patient continues to be irritable and agitated and uncooperative on history and physical. A QTC has been stable and bicarb drip has been turned off. She has history of underlying bipolar disorder migraines and restless leg syndrome. Crisis team would be contacted for further evaluation. Also has UA positive for UTI and started on ceftriaxone. Follow urine culture. Hypo magnesium E a replaced Review of Systems Review of Systems: All systems reviewed & are unremarkable except as noted in HPI and below Exam Narrative: General: Pleasant female in no acute distress HEENT:? Pupils equally reactive, sclera is clear Neck:? Supple Respiratory:? Clear to auscultation bilaterally Cardiac:? S1-S2 is normal, regular rate and rhythm Abdomen:? Soft, nontender, nondistended, normoactive bowel sounds Extremities:? No edema, palpable pedal pulses Neuro:? Patient is awake, alert, oriented, answers to questions but irritable Skin:? Warm and dry Psych:? Irritable Objective Data Vital Signs Vital Signs: Vital Signs - 24 hr 01/28/23 20:00 01/28/23 20:42 01/28/23 20:21 Temperature 98.1 F Pulse Rate 83 82 81 Respiratory Rate 15 20 Blood Pressure 91/59 L 109/64 Pulse Oximetry 100 99 Oxygen Delivery Room Air 01/28/23 20:57 01/28/23 22:28 01/28/23 23:43 Temperature 98.1 F Pulse Rate 85 85 Respiratory Rate 20 20 20 Blood Pressure 92/78 L 94/74 L Pulse Oximetry 100 100 O
[2023-01-29] MEDS: PRAVASTATIN SODIUM 20 MG TABLET 40 MG PO (18:35)
[2023-01-29] MEDS: NICOTINE (*PBKC) 21 MG PATCH 1 PATCH TRANSDERM (21:23)
[2023-01-30 03:54] VITALS: BP 105/64; PULSE 77; RESP 18; TEMP 36.6; O2SAT 98
[2023-01-30 04:31] LABS: Basophils Percent Auto 0.6 % (0.2-1.2); Eosinophils Absolute Auto 0.2 K/mm3 (0-0.3); Eosinophils Percent Auto 2.7 % (0-4.4); Hematocrit 36.9 % (37.0-47.0); Hemoglobin 11.9 g/dL (12.0-15.0); Immature Granulocyte Absolute 0.01 K/mm3 (0.00-0.031); Immature Granulocyte Percent A 0.2 % (0-0.5); Lymphocytes Absolute Auto 2.79 K/mm3 (0.9-3.2); Lymphocytes Percent Auto 42.5 % (18.3-44.2); Mean Corpuscular HGB Conc 32.2 g/dl (32-36); Mean Corpuscular Hemoglobin 28.3 pg (26-34); Mean Corpuscular Volume 87.9 fl (80-100); Mean Platelet Volume 9.6 fl (7.4-10.4); Monocytes Absolute Auto 0.3 K/mm3 (0.1-0.6); Monocytes Percent Auto 5.2 % (2.6-8.5); Neutrophils Absolute Auto 3.2 K/mm3 (1.3-6.7); Neutrophils Percent Auto 48.8 % (45.5-73.1); Platelet Count Result 209 k/mm3 (150-375); Red Cell Distribution Width 13.1 % (11.5-14.5); White Blood Count 6.6 K/mm3 (4.5-10.0)
[2023-01-30 04:43] LABS: Alanine Aminotransferase 31 U/L (6-35); Albumin Level 2.9 g/dL (3.5-5.1); Alkaline Phosphatase 51 U/L (38-126); Anion Gap 4 mmol/L (8-16); Aspartate Amino Transferase 20 U/L (14-36); Bilirubin,Total 0.3 mg/dL (0.2-1.3); Blood Urea Nitrogen 7 mg/dL (7-17); Calcium 7.8 mg/dL (8.4-10.2); Carbon Dioxide 27 mmol/L (22-30); Chloride 108 mmol/L (98-107); Estimated CRCL calculation 124 ml/min; Estimated Glomerular Filt Rate > 60; Glucose 102 mg/dL (65-110); Potassium 3.9 mmol/L (3.4-5.0); Sodium 139 mmol/L (137-145)
[2023-01-30 08:13] VITALS: BP 134/81; PULSE 91; RESP 18; TEMP 36.6; O2SAT 97
[2023-01-30] MEDS: NICOTINE (*PBKC) 21 MG PATCH 1 PATCH TRANSDERM (08:16)
[2023-01-30] MEDS: cefTRIAXone 2 GM/NS 100 ML 2 GM/100 ML BAG IVPB (08:16)
[2023-01-30] MEDS: ENOXAPARIN 40 MG/0.4 ML SYRINGE SUB-Q (08:19)
--- NOTE | 2023-01-30 11:23 | PM.IMPN ---
Progress Note: A&P Assessment and Plan (1) Intentional drug overdose: Code(s): T50.902A - Poisoning by unspecified drugs, medicaments and biological substances, intentional self-harm, initial encounter Status: Acute (2) TCA (tricyclic antidepressant) overdose of undetermined intent: Code(s): T43.014A - Poisoning by tricyclic antidepressants, undetermined, initial encounter Status: Acute (3) Hypomagnesemia: Code(s): E83.42 - Hypomagnesemia Status: Acute (4) UTI (urinary tract infection): Code(s): N39.0 - Urinary tract infection, site not specified Status: Acute Plan Patient presented with medication overdose. She reported that she took 3 doses of amitriptyline to get high. ER note states she took handful of several medications unknown which medications and became lethargic and was brought in by ambulance. Denies attempt to kill herself. She has been placed on 05/09 due to overdose on medication. Her prescription medication for acyclovir escitalopram gabapentin hydroxyzine lamotrigine mirtazapine and olanzapine. She used to be on amitriptyline and she had order prescription medication for this. Lab work with normal cbc low magnesium 1.3 which was repleted salicylate and acetaminophen was negative eval alcohol was negative. He was slough started on bicarbonate drip and was placed in ICU. Patient initially irritable and agitated and uncooperative on history and physical. A QTC has been stable and bicarb drip has been turned off. Poison Control has signed off. She is more cooperative on examination. She does have underlying UTI with positive UA improved on ceftriaxone. Urine cultures pending will plan to switch to oral antibiotics. Follow-up urine culture as an outpatient basis. She has history of underlying bipolar disorder migraines and restless leg syndrome. Crisis team to further evaluate. She is medically cleared for discharge otherwise. Subjective Date/time seen: 01/30/23 11:23 Interval history: Patient irritable. Reports that she took 3 doses of amitriptyline to get high. ER note states she took handful of several medications unknown which medications and became lethargic and was brought in by ambulance. Denies attempt to kill herself. She has been placed on 05/09 due to overdose on medication. Her prescription medication for acyclovir escitalopram gabapentin hydroxyzine lamotrigine mirtazapine and olanzapine. She used to be on amitriptyline and she had order prescription medication for this. Lab work with normal cbc low magnesium 1.3 which was repleted salicylate and acetaminophen was negative eval alcohol was negative. He was slough started on bicarbonate drip and was placed in ICU. Patient continues to be irritable and agitated and uncooperative on history and physical. A QTC has been stable and bicarb drip has been turned off. She has history of underlying bipolar disorder migraines and restless leg syndrome. Crisis team would be contacted for further evaluation. Also has UA positive for UTI and started on ceftriaxone. Follow urine culture. Hypo magnesium E a replaced 01/30/2023: Patient more alert and cooperative poison Control signed off last evening. Denies any suicidal ideation. States to amitriptyline 3 pills. Urine symptoms has improved. Discussed follow-up with PCP upon discharge and urine culture follow-up Review of Systems Review of Systems: All systems reviewed & are unremarkable except as noted in HPI and below Exam Narrative: General: Pleasant female in no acute distress HEENT:? Pupils equally reactive, sclera is clear Neck:? Supple Respiratory:? Clear to auscultation bilaterally no respiratory distress Cardiac:? S1-S2 is normal, regular rate and rhythm Abdomen:? Soft, nontender, nondistended, normoactive bowel sounds Extremities:? No edema, palpable pedal pulses Neuro:? Patient is awake, alert, oriented, answers to questions Skin:? Warm and
[2023-01-30 13:09] LABS: SARS-CoV-2 RNA PCR Negative (Negative)
--- NOTE | 2023-02-01 17:47 | PM.DS ---
DS: Admitting Diagnosis Discharge Date 01/30/23 Admitting Diagnosis Drug overdose DS: Discharge Diagnosis Discharge Diagnosis (1) Intentional drug overdose: Code(s): T50.902A - Poisoning by unspecified drugs, medicaments and biological substances, intentional self-harm, initial encounter Status: Acute (2) TCA (tricyclic antidepressant) overdose of undetermined intent: Code(s): T43.014A - Poisoning by tricyclic antidepressants, undetermined, initial encounter Status: Acute (3) Hypomagnesemia: Code(s): E83.42 - Hypomagnesemia Status: Acute (4) UTI (urinary tract infection): Code(s): N39.0 - Urinary tract infection, site not specified Status: Acute DS: Summary Hospital Course Hospital Course: Patient presented with medication overdose.? She reported that she took 3 doses of amitriptyline to get high.? ER note states she took handful of several medications unknown which medications and became lethargic and was brought in by ambulance.? Denies attempt to kill herself.? She has been placed on 05/09 due to overdose on medication.? Her prescription medication for acyclovir escitalopram gabapentin hydroxyzine lamotrigine mirtazapine and olanzapine.? She used to be on amitriptyline and she had order prescription medication for this.? Lab work with normal cbc low magnesium 1.3 which was repleted salicylate and acetaminophen was negative eval alcohol was negative.? He was slough started on bicarbonate drip and was placed in ICU.? Patient initially irritable and agitated and uncooperative on history and physical.? A QTC has been stable and bicarb drip has been turned off.? Poison Control has signed off.? She is more cooperative on examination.? She does have underlying UTI with positive UA improved on ceftriaxone.? Urine cultures pending will plan to switch to oral antibiotics cefdinir at discharge.? Follow-up urine culture as an outpatient basis.? She has history of underlying bipolar disorder migraines and restless leg syndrome.? Crisis team to further evaluate and cleared for discharge.? She is medically cleared for discharge otherwise. Time Spent with Patient Time attestation: Total time spent providing and/or coordinating discharge services: 45 minutes Exam Narrative: General: Pleasant female in no acute distress HEENT:? Pupils equally reactive, sclera is clear Neck:? Supple Respiratory:? Clear to auscultation bilaterally no respiratory distress Cardiac:? S1-S2 is normal, regular rate and rhythm Abdomen:? Soft, nontender, nondistended, normoactive bowel sounds Extremities:? No edema, palpable pedal pulses Neuro:? Patient is awake, alert, oriented, answers to questions Skin:? Warm and dry Psych:? Cooperative DS: Data Imaging Radiologist's impression: ITS Impressions Chest X-Ray 01/28/23 20:44 IMPRESSION: No active disease is evident Head CT 01/28/23 20:47 IMPRESSION: No acute intracranial finding Discharge Plan Discharge Attending physician on discharge: Calin Winchester Consulting providers: James Hardy; Nathaniel Kaminski; Mario Dobbs Discharging Clinician: Calin [place] Anticipated Discharge Date/Time: 01/30/23 11:27 Patient Disposition: Home, Self-Care Activity: as tolerated Diet: regular Patient Instructions: Antibiotic Form, Suicide Prevention (DC) Stand Alone Forms: General Discharge Information Follow-up/Referrals: [facility] [Primary Care Provider] - 1 Week Discharge Medications: New cefdinir 300 mg capsule 300 mg PO Q12H Qty: 10 0RF Continued olanzapine 5 mg tablet 5 mg PO DAILY pravastatin 40 mg tablet 40 mg PO QPM amitriptyline 75 mg tablet 75 mg PO HS tizanidine 4 mg tablet 4 mg PO HS trazodone 150 mg tablet 375 mg PO HS metformin 1,000 mg tablet 1,000 mg PO BID hydroxyzine HCl 25 mg tablet 25 mg PO QID PRN (Reason: Anxiety) pr
== END 2023-01-30 14:28 | disposition home or self-care (01) | DRG 918 ==
LOC: ANHED 22:19 → ANHICU 23:30
PROVIDERS: Admitting Provider Family Medicine; Emergency Provider Student in an Organized Health Care Education/Training Program; Visit Provider Internal Medicine
DX: T43.014A Poisoning by tricyclic antidepressants, undetermined, initial encounter (principal); N39.0 Urinary tract infection, site not specified; Z20.822 Contact with and (suspected) exposure to COVID-19; F41.9 Anxiety disorder, unspecified; G25.81 Restless legs syndrome; E66.9 Obesity, unspecified; E83.42 Hypomagnesemia; T43.012A Poisoning by tricyclic antidepressants, intentional self-harm, initial encounter; F31.9 Bipolar disorder, unspecified
CPT/HCPCS: 36415; 70450; 71045; 80053; 80307; 81001; 81025; 82803; 83605; 83735; 84100; 84443; 85025; 85610; 85730; 87077; 87086; 87088; 87186; 87635; 93005; 96360; 99285; A9270; J0696; J1650; J2060; J3475; J3480; J7030; J7050; J7070; J7120

== ENCOUNTER 2023-03-17 16:02 | Emergency (ER) | payer MEDICARE, MEDICAID, SELFPAY ==
--- NOTE | ~2023-03-17 | CT_ITS ---
EXAMINATION: CT abdomen pelvis wo con DATE: 03/17/2023 17:52 INDICATION: Left lower quadrant abdominal pain. TECHNIQUE: Computed tomography (CT) of the abdomen and pelvis was performed without intravenous contr ast. Automated exposure control and iterative reconstruction technique were employed. The dose-length product was 749.01 mGy-cm. COMPARISON: None. FINDINGS: The visualized portions of the lung bases are clear without pneumonia or pleural effusion. The heart size is normal. No pericardial effusion. There is diffuse hepatic steatosis. The gallbladde r, spleen, pancreas, adrenal glands, and right kidney are normal. There is a 15 mm stone in left kidn ey. There is fat stranding in the left lower quadrant. The appendix is normal. There are no dilated l oops of bowel. There are no pathologically enlarged lymph nodes. There is no free intraperitoneal flu id. There is mild thoracic and lumbar spondylosis. IMPRESSION: 1. Fat stranding in left lower quadrant, likely fat necrosis. 2. Nonobstructing left kidney stone. 3. Diffuse hepatic steatosis. Reviewed, dictated and finalized at location E. ITION SERVICES MANAGER
[2023-03-17 16:25] VITALS: BP 108/77; PULSE 108; RESP 20; TEMP 36.7; O2SAT 97
--- NOTE | 2023-03-17 16:44 | ECG_ITS ---
Measurements Intervals Conception Rate: 81 P: -10 IA: 137 QRS: 29 QRSD: 93 T: 30 QT: 368 QTc: 428 Interpretive Statements SINUS RHYTHM LOW QRS VOLTAGE IN PRECORDIAL LEADS BASELINE WANDER- III BORDERLINE ECG COMPARED TO ECG 01/29/2023 07:20:55 NO SIGNIFICANT CHANGES Electronically Signed On 03-17-2023 18:52:09 PATTERN PUNCHER by Nathaniel Kaminski D.O.
[2023-03-17 17:10] LABS: Basophils Absolute Auto 0.09 K/mm3 (0.00-0.10); Basophils Percent Auto 0.6 % (0.0-1.0); Eosinophils Absolute Auto 0.59 K/mm3 (0.02-0.50); Eosinophils Percent Auto 3.9 % (1.0-6.0); Hemoglobin 14.4 g/dL (12.0-15.0); Immature Granulocyte Absolute 0.12 K/mm3 (0.00-0.00); Immature Granulocyte Percent A 0.8 % (0.0-0.0); Lymphocytes Absolute Auto 4.09 K/mm3 (1.10-4.50); Lymphocytes Percent Auto 26.9 % (18.0-42.0); Mean Corpuscular Hemoglobin 27.5 pg (27.0-31.0); Mean Corpuscular Volume 85.9 fL (78.0-102.0); Mean Platelet Volume 9.1 fl (9.2-11.8); Monocytes Absolute Auto 0.68 K/mm3 (0.10-0.90); Monocytes Percent Auto 4.5 % (2.0-11.0); Neutrophils Absolute Auto 9.6 K/mm3 (1.7-7.2); Neutrophils Percent Auto 63.3 % (50.0-70.0); Platelet Count Result 379 K/mm3 (150-420); Red Blood Count 5.24 M/mm3 (4.20-5.40); White Blood Count 15.2 K/mm3 (4.8-10.8)
[2023-03-17 17:11] LABS: Appearance Urine Clear (Clear); Bilirubin Urine Negative (Negative); Blood Urine Negative (Negative); Color Urine Light Yellow (Yellow); Glucose Urine UA Negative (Negative); Ketones Urine Negative (Negative); Leukocyte Esterase Ur 1+ LEU/UL (Negative); Nitrate Urine Negative (Negative); Protein Urine Negative (Negative); Specific Grav Ur 1.025 (1.010-1.020); Urobilinogen Urine 0.2 mg/dL (0.2-1.0)
[2023-03-17 17:22] LABS: Add Urine Microscopic? YES; Bacteria Urine 1+ /hpf; RBC Urine None seen /hpf (0-2); Squamous Epithelial Cell Urine Few /hpf (Few)
[2023-03-17 17:23] LABS: Pregnancy On Board Control Positive; Urine Pregnancy Test Negative
[2023-03-17 17:25] LABS: Alanine Aminotransferase 38 U/L (14-59); Albumin Level 2.6 g/dL (3.4-5.0); Alkaline Phosphatase 84 U/L (46-116); Anion Gap 8 mmol/L (8-16); Aspartate Amino Transferase 10 U/L (15-37); Bilirubin,Total 0.2 mg/dL (0.00-1.00); Blood Urea Nitrogen 9 mg/dL (7-18); CRP 0.5 mg/dL (0.0-0.9); Calcium 8.9 mg/dL (8.5-10.1); Carbon Dioxide 27 mmol/L (21-32); Chloride 103 mmol/L (98-108); Estimated Glomerular Filt Rate > 60; Glucose 179 mg/dL (70-99); INR 0.9; Lipase 40 U/L (16-77); Osmolality Calculated 288 mOsm/kg (285-295); Partial Thromboplastin Time 24.5 SEC (23.90-30.70); Potassium 4.3 mmol/L (3.5-5.1); Prothrombin Time 10.1 Seconds (9.50-12.10); Sodium 138 mmol/L (136-145); Total Protein 5.8 g/dL (6.4-8.2)
[2023-03-17] MEDS: SODIUM CHLORIDE 0.9% IV 1,000 ML 999 ML IV CONT (17:27)
[2023-03-17] MEDS: KETOROLAC 30 MG/ML VIAL (*BKC) IV PUSH (17:28)
[2023-03-17] MEDS: ONDANSETRON INJ 4 MG/2 ML VIAL IV PUSH (17:28)
[2023-03-17 17:34] LABS: Lactic Acid Reflex 1.7 mmol/L (0.4-2.0)
--- NOTE | 2023-03-17 18:08 | ED.ABDPAIN ---
HPI - Abdominal Pain General Chief Complaint: Abdominal Pain Stated Complaint: ABDOMINAL PAIN Source: patient Mode of arrival: ambulatory Limitations: no limitations History of Present Illness HPI narrative: Patient presents with abdominal pain she is a 32-year-old female with dysuria she has left lower quadrant pain and flank pain with suprapubic tenderness with no fever chills pain level about an 810 with nausea, with some no chest pain no shortness of breath, patient has been having off and on diarrhea for the last 2 weeks with no chest pain no shortness of breath. MD elicited complaint: abdominal pain and flank pain Onset (ago): week(s) Pain Consistency: intermittent Severity: moderate Related Data Home Medications Medication Instructions Recorded Confirmed olanzapine 5 mg tablet 5 mg PO DAILY 01/09/23 01/29/23 amitriptyline 75 mg tablet 75 mg PO HS 01/28/23 01/29/23 hydroxyzine HCl 25 mg tablet 25 mg PO QID PRN Anxiety 01/28/23 01/28/23 lisinopril 2.5 mg tablet 2.5 mg PO DAILY 01/28/23 01/29/23 lurasidone 80 mg tablet 80 mg PO DAILY 01/28/23 01/29/23 metformin 1,000 mg tablet 1,000 mg PO BID 01/28/23 01/29/23 pravastatin 40 mg tablet 40 mg PO QPM 01/28/23 01/29/23 propranolol 20 mg tablet 20 mg PO BID 01/28/23 01/29/23 tizanidine 4 mg tablet 4 mg PO HS 01/28/23 01/28/23 trazodone 150 mg tablet 375 mg PO HS 01/28/23 01/29/23 Allergies Allergy/AdvReac Type Severity Reaction Status Date / Time No Known Allergies Allergy Verified 01/28/23 20:43 Review of Systems Review of Systems: All systems reviewed & are unremarkable except as noted in HPI and below PMFSH Past Medical History Medical History Anxiety and depression Migraine Restless leg syndrome Surgical History Surgical History No significant past surgical history Family History Family History Other Unknown family medical history Social History Social History Smoking status: Unknown if ever smoked Alcohol intake: unknown Substance use: current Substance use type: unknown Living arrangements: with family Gender identity (if verbalized by the patient): Female Spiritual care concerns: No Exam Const: General: healthy appearing Nutritional Appearance: well nourished Orientation/consciousness: patient oriented x3 Limitations: no limitations Chest: Chest palpation & inspection: normal inspection of the chest Resp: Effort & Inspection: normal respiratory effort Auscultation: clear to auscultation bilaterally Cardio: Rate: regular rate Rhythm: regular rhythm GI: GI Palp: Yes Soft to palpation and Yes Tenderness to palpation present (GI) Other: Left lower quadrant suprapubic tenderness with palpation Back/Spine/Pelvis: Back: CVA tenderness Skin: General skin exam: normal color Neuro: General: patient oriented x3 and moves all extremities Psych: Mental Status: mental status grossly normal Affect: normal affect Course Course Emergency Course: [place] [id number] along with some positive urinalysis indicative of urinary tract infection, patient had pain medication states that her pain was marginally improved patient received IV fluids, CT scan performed shows a a kidney stone nonobstructing with no hydronephrosis and left lower quadrant with fat stranding and hepatic steatosis. Patient also received ceftriaxone 1g IV. Vital Signs Vital signs: Vital Signs Temperature 36.7 C 03/17/23 16:25 Pulse Rate 108 H 03/17/23 16:25 Respiratory Rate 20 03/17/23 16:25 Blood Pressure 108/77 03/17/23 16:25 Pulse Oximetry 97 03/17/23 16:25 Oxygen Delivery Room Air 03/17/23 16:25 Temperature 36.7 C 03/17/23 16:25 Pulse Rate 108 H 03/17/23 16:25 Respiratory
[2023-03-17 18:20] VITALS: PULSE 80; RESP 18; TEMP 36.9; O2SAT 97
--- NOTE | 2023-03-21 15:07 | PC.NURSE ---
pt's final urine culture report reviewed. >100,000 Proteus Mirabilis isolated. pt prescribed macrobid. this isolate is resistant to macrobid. erp, dr askew reviewed chart and prescribed Augmentin 8756mg po bid 10 days. pt contacted to instruct to start new rx. pt voices understanding. Augmentin called in to [facility] in [place].
== END 2023-03-17 18:44 | disposition home or self-care (01) ==
PROVIDERS: Emergency Provider Emergency Medicine
DX: N30.00 Acute cystitis without hematuria (principal); N20.0 Calculus of kidney
CPT/HCPCS: 36415; 74176; 80053; 81001; 81025; 83605; 83690; 85025; 85610; 85730; 86140; 87077; 87086; 87088; 87186; 93005; 96361; 96365; 96375; 99285; J0696; J1885; J2405; J7030

== ENCOUNTER 2023-04-13 13:08 | Emergency (ER) | payer MEDICARE, MEDICAID, SELFPAY ==
[2023-04-13 13:08] VITALS: BP 113/84; PULSE 90; RESP 16; TEMP 36.2; O2SAT 98
--- NOTE | 2023-04-13 13:22 | ED.DENTAL ---
HPI - Dental/Oral General Chief complaint: Dental/Oral Stated complaint: tooth pain Time Seen by Provider: 04/13/23 13:22 Source: patient Mode of arrival: ambulatory Limitations: no limitations History of Present Illness HPI Narrative: 32-year-old female with anxiety/depression, migraine, or illness presents to the ER with a 2 day history of -- left lower jaw pain/dental pain radiating to the ear. her pain flared up after she drank some cold liquid. no fever MD Complaint: tooth pain Onset (ago): day(s) ( 2 days) Duration: constant Exacerbating factors: cold Context: history of dental caries Treatment prior to arrival: none Related Data Home Medications Medication Instructions Recorded Confirmed olanzapine 5 mg tablet 5 mg PO DAILY 01/09/23 04/13/23 amitriptyline 75 mg tablet 75 mg PO HS 01/28/23 04/13/23 hydroxyzine HCl 25 mg tablet 25 mg PO QID PRN Anxiety 01/28/23 04/13/23 lisinopril 2.5 mg tablet 2.5 mg PO DAILY 01/28/23 04/13/23 lurasidone 80 mg tablet 80 mg PO DAILY 01/28/23 04/13/23 metformin 1,000 mg tablet 1,000 mg PO BID 01/28/23 04/13/23 pravastatin 40 mg tablet 40 mg PO QPM 01/28/23 04/13/23 propranolol 20 mg tablet 20 mg PO BID 01/28/23 04/13/23 tizanidine 4 mg tablet 4 mg PO HS 01/28/23 04/13/23 trazodone 150 mg tablet 375 mg PO HS 01/28/23 04/13/23 Allergies Allergy/AdvReac Type Severity Reaction Status Date / Time No Known Allergies Allergy Verified 04/13/23 13:20 Review of Systems Review of Systems: All systems reviewed & are unremarkable except as noted in HPI and below Constitutional: Constitutional: Reports as per HPI and Reports no additional constitutional complaints Eyes: Eyes: Reports as per HPI and Reports no additional eye complaints ENT: Reports system reviewed and no additional complaints, except as documented and Reports as per HPI Comments: Left lower dental pain Cardiovascular: Cardiovascular: Reports as per HPI and Reports no additional cardiovascular complaints Respiratory: Respiratory: Reports as per HPI and Reports no additional respiratory complaints Gastrointestinal: Gastrointestinal: Reports as per HPI and Reports no additional gastrointestinal complaints Genitourinary: Genitourinary: Reports no additional female genitourinary complaints Musculoskeletal: Musculoskeletal: Reports no additional musculoskeletal complaints Integumentary/Breasts: Skin/Breast: Reports system reviewed and no additional complaints, except as docu and Reports as per HPI Neurologic: Reports system reviewed and no additional complaints, except as documented and Reports as per HPI Psychiatric: Psychiatric: Reports no additional psychiatric complaints and Reports as per HPI Endocrine: Endocrine: Reports no additional endocrine complaints and Reports as per HPI Hematologic/Lymphatic: Hematologic/Lymphatic: Reports no additional hematologic/lymphatic complaints and Reports as per HPI Allergic/Immunologic: Allergic/Immunologic: Reports no additional allergic/immunologic complaints and Reports as per HPI PMFSH Past Medical History Medical History Anxiety and depression Migraine Restless leg syndrome Surgical History Surgical History No significant past surgical history Family History Family History Other Unknown family medical history Social History Social History Smoking status: Unknown if ever smoked Alcohol intake: unknown Substance use: current Substance use type: unknown Living arrangements: with family Gender identity (if verbalized by the patient): Female Spiritual care concerns: No Exam Const: General: healthy appearing Nutritional Appearance: obese Orientation/consciousness: patient oriented x3 Limitations: no limitations HE
[2023-04-13] MEDS: HYDROcodone/acetaminophen (*CRX) 5-325 MG TABLET 1 TAB PO (13:56)
== END 2023-04-13 14:00 | disposition home or self-care (01) ==
PROVIDERS: Emergency Provider Internal Medicine Critical Care Medicine
DX: K02.9 Dental caries, unspecified (principal); Z79.899 Other long term (current) drug therapy; Z79.84 Long term (current) use of oral hypoglycemic drugs
CPT/HCPCS: 99283; A9270

== ENCOUNTER 2023-04-21 20:00 | Emergency (ER) | payer MEDICARE, MEDICAID, SELFPAY ==
--- NOTE | ~2023-04-21 | XR_ITS ---
EXAMINATION: XR chest 1V portable DATE: 04/21/2023 20:16 INDICATION: Shortness of breath TECHNIQUE: frontal view of the chest was obtained. COMPARISON: Chest radiograph dated 01/28/2023 FINDINGS: The lungs remain clear with no focal airspace opacities, pulmonary edema, pleural effusion or pneumot horax. The cardiomediastinal silhouette is normal. Visualized bones and soft tissues are unremarkable . IMPRESSION: 1. No acute cardiopulmonary disease. Reviewed, dictated and finalized at location [facility]
[2023-04-21] MEDS: ALPRAZolam (*CRX) 0.5 MG TABLET PO (20:37)
[2023-04-21] MEDS: IPRATROPIUM 0.5 MG/ALBUTEROL SULFATE 2.5 MG AMPUL.NEB 3 ML INHALATION (20:38)
[2023-04-21 20:49] VITALS: BP 114/84; PULSE 86; RESP 18; TEMP 36.6; O2SAT 100
--- NOTE | 2023-04-21 21:13 | ED.URI ---
HPI - URI/Sore Throat General Chief Complaint: Upper Respiratory Infection Stated Complaint: throat, chest and face on fire , cough Time Seen by Provider: 04/21/23 20:03 Source: patient Mode of arrival: ambulatory Limitations: no limitations History of Present Illness HPI Narrative: This is 32 female with history of anxiety that presents with chest tightness shortness of breath with cough and nasal congestion with no fever chills no audible wheezing no nausea vomiting no abdominal pain or chest pain. MD elicited complaint: cough and nasal congestion Onset (ago): hour(s) Consistency: constant Severity: mild Description of mucous: clear Related Data Home Medications Medication Instructions Recorded Confirmed olanzapine 5 mg tablet 5 mg PO DAILY 01/09/23 04/13/23 amitriptyline 75 mg tablet 75 mg PO HS 01/28/23 04/13/23 hydroxyzine HCl 25 mg tablet 25 mg PO QID PRN Anxiety 01/28/23 04/13/23 lisinopril 2.5 mg tablet 2.5 mg PO DAILY 01/28/23 04/13/23 lurasidone 80 mg tablet 80 mg PO DAILY 01/28/23 04/13/23 metformin 1,000 mg tablet 1,000 mg PO BID 01/28/23 04/13/23 pravastatin 40 mg tablet 40 mg PO QPM 01/28/23 04/13/23 propranolol 20 mg tablet 20 mg PO BID 01/28/23 04/13/23 tizanidine 4 mg tablet 4 mg PO HS 01/28/23 04/13/23 trazodone 150 mg tablet 375 mg PO HS 01/28/23 04/13/23 Allergies Allergy/AdvReac Type Severity Reaction Status Date / Time No Known Allergies Allergy Verified 04/21/23 20:13 Review of Systems Review of Systems: All systems reviewed & are unremarkable except as noted in HPI and below PMFSH Past Medical History Medical History Anxiety and depression Migraine Restless leg syndrome Surgical History Surgical History No significant past surgical history Family History Family History Other Unknown family medical history Social History Social History Smoking status: Unknown if ever smoked Alcohol intake: unknown Substance use: current Substance use type: unknown Living arrangements: with family Gender identity (if verbalized by the patient): Female Spiritual care concerns: No Course Course Emergency Course: Chest x-ray performed shows no acute cardiopulmonary abnormalities, COVID RSV and influenza performed and reviewed with patient. Patient did receive nebulizer treatment and reassessment patient feels better and also received a dose of p.o. Xanax. Vital Signs Vital signs: Vital Signs Temperature 36.6 C 04/21/23 20:49 Pulse Rate 86 04/21/23 20:49 Respiratory Rate 18 04/21/23 20:49 Blood Pressure 114/84 04/21/23 20:49 Pulse Oximetry 100 04/21/23 20:49 Oxygen Delivery Room Air 04/21/23 20:49 Temperature 36.6 C 04/21/23 20:49 Pulse Rate 90 04/21/23 21:52 Respiratory Rate 18 04/21/23 21:52 Blood Pressure 110/86 04/21/23 21:52 Pulse Oximetry 99 04/21/23 21:52 Oxygen Delivery Room Air 04/21/23 20:49 MDM - URI/Sore Throat Lab Data Labs: Lab Results 04/21/23 Range/Units 20:43 Influenza A (RT-PCR) Negative (Negative) Influenza B (RT-PCR) Negative (Negative) RSV (RT-PCR) Negative (Negative) SARS-CoV-2 RNA (RT-PCR) Negative (Negative) Critical Care Time Critical Care Time Critical Care Time: No Discharge Plan Discharge Clinical Impression: Anxiety Patient Disposition: Home, Self-Care Condition: Stable Instructions: Antibiotic Form Additional Instructions: advised to take medicine as prescribed follow-up primary care physician within the next week further evaluation treatment. Prescriptions: New alprazolam [Xanax] 0.5 mg tablet 0.5 mg PO BID PRN (Reason: anxiety) Qty: 10 0RF ProAir RespiClick 90 mcg/actuation aerosol powdr breath activated
[2023-04-21 21:22] LABS: SARS-CoV-2 RNA PCR Negative (Negative)
[2023-04-21 21:27] LABS: Influenza A QL RT-PCR Negative (Negative); Influenza B QL RT-PCR Negative (Negative); RSV RNA, RT-PCR Negative (Negative)
[2023-04-21 21:52] VITALS: BP 110/86; PULSE 90; RESP 18; O2SAT 99
== END 2023-04-21 21:55 | disposition home or self-care (01) ==
PROVIDERS: Emergency Provider Emergency Medicine
DX: F41.9 Anxiety disorder, unspecified (principal); Z20.822 Contact with and (suspected) exposure to COVID-19
CPT/HCPCS: 71045; 87637; 99283; A9270

== ENCOUNTER 2023-05-14 17:48 | Emergency (ER) | payer MEDICARE, MEDICAID, SELFPAY ==
[2023-05-14 17:48] VITALS: BP 119/86; PULSE 100; RESP 16; TEMP 36.8; O2SAT 96
--- NOTE | 2023-05-14 17:51 | ED.EXTPRO ---
HPI - Extremity Problem General Chief complaint: Extremity Problem,Nontraumatic Stated complaint: toe pain Time Seen by Provider: 05/14/23 17:51 Source: patient Mode of arrival: ambulatory Limitations: no limitations History of Present Illness HPI Narrative: this is a 33-year-old female who presents with right great toe pain no recent injury does have dark and under the nail of her great toe suggestive of subungual hematoma, no recent injury no numbness or tingling has good range of motion normal gait. Patient has tried [id number] ibuprofen with some minimal to moderate relief. Complaint: extremity pain Onset (ago): day(s) Pain Consistency: constant Location: right Severity scale (1-10): 5 Quality: aching Related Data Home Medications Medication Instructions Recorded Confirmed olanzapine 5 mg tablet 5 mg PO DAILY 01/09/23 04/13/23 amitriptyline 75 mg tablet 75 mg PO HS 01/28/23 04/13/23 hydroxyzine HCl 25 mg tablet 25 mg PO QID PRN Anxiety 01/28/23 04/13/23 lisinopril 2.5 mg tablet 2.5 mg PO DAILY 01/28/23 04/13/23 lurasidone 80 mg tablet 80 mg PO DAILY 01/28/23 04/13/23 metformin 1,000 mg tablet 1,000 mg PO BID 01/28/23 04/13/23 pravastatin 40 mg tablet 40 mg PO QPM 01/28/23 04/13/23 propranolol 20 mg tablet 20 mg PO BID 01/28/23 04/13/23 tizanidine 4 mg tablet 4 mg PO HS 01/28/23 04/13/23 trazodone 150 mg tablet 375 mg PO HS 01/28/23 04/13/23 Allergies Allergy/AdvReac Type Severity Reaction Status Date / Time No Known Allergies Allergy Verified 05/14/23 17:49 Review of Systems Review of Systems: All systems reviewed & are unremarkable except as noted in HPI and below PMFSH Past Medical History Medical History Anxiety and depression Migraine Restless leg syndrome Surgical History Surgical History No significant past surgical history Family History Family History Other Unknown family medical history Social History Social History Smoking status: Unknown if ever smoked Alcohol intake: unknown Substance use: current Substance use type: unknown Living arrangements: with family Gender identity (if verbalized by the patient): Female Spiritual care concerns: No Exam Const: General: healthy appearing Nutritional Appearance: well nourished Orientation/consciousness: patient oriented x3 Limitations: no limitations Resp: Effort & Inspection: normal respiratory effort Auscultation: clear to auscultation bilaterally Cardio: Rate: regular rate Rhythm: regular rhythm Skin: Wounds: wounds noted Other: Subungual hematoma on the right great toe Neuro: General: moves all extremities Extrem: General: no pedal edema Course Course Emergency Course: has a subungual hematoma and will prescribe anti-inflammatory pain medicine. Critical Care Time Critical Care Time Critical Care Time: No Discharge Plan Discharge Clinical Impression: Subungual hematoma Patient Disposition: Home, Self-Care Condition: Stable Instructions: Antibiotic Form, Subungual Hematoma (ED) Additional Instructions: take medicine as prescribed follow up with primary if symptoms persist or worsen. Prescriptions: New naproxen 500 mg tablet 500 mg PO BID PRN (Reason: pain) Qty: 14 0RF No Action alprazolam [Xanax] 0.5 mg tablet 0.5 mg PO BID PRN (Reason: anxiety) Qty: 10 0RF ProAir RespiClick 90 mcg/actuation aerosol powdr breath activated 2 inh inhalation QID PRN (Reason: shortness of breath) Qty: 1 0RF clindamycin HCl 300 mg capsule 300 mg PO Q8H Qty: 20 0RF olanzapine 5 mg tablet 5 mg PO DAILY pravastatin 40 mg tablet 40 mg PO QPM amitriptyline 75 mg tablet 75 mg PO HS tizanidine 4 mg tablet 4 mg PO HS
[2023-05-14 18:02] VITALS: BP 119/86; PULSE 100; RESP 16; TEMP 36.8; O2SAT 96
== END 2023-05-14 18:02 | disposition home or self-care (01) ==
LOC: CHSED 17:58
PROVIDERS: Emergency Provider Emergency Medicine
DX: S90.211A Contusion of right great toe with damage to nail, initial encounter (principal); X58.XXXA Exposure to other specified factors, initial encounter
CPT/HCPCS: 99283